=== PATIENT | male | born 1960 | race African-American/Black ===

== ENCOUNTER 2022-02-28 02:33 | Inpatient (IN) | payer MEDICAID ==
[~2022-02-28] VITALS: Ht 152.4 cm; Wt 77.1 kg
[2022-02-28] MEDS ORDERED: ASPIRIN 81MG TABLET PO ONE (02:45)
[2022-02-28 03:30] LABS: BASOPHILS % 0.7 % (0.0-2.0); EOSINOPHILS % 2.7 % (0.0-5.0); HEMATOCRIT. 22.8 % (42.0-52.0); HEMOGLOBIN. 7.3 g/dL (14.0-18.0); LYMPHOCYTES % 14.7 % (20.0-50.0); MEAN CORPUSCULAR HEMOGLOBIN 33.6 pg (28.0-32.0); MEAN CORPUSCULAR VOLUME 104.1 fL (80.0-94.0); MEAN PLATELET VOLUME 6.9 fl (7.4-10.4); MONOCYTES % 8.6 % (2.0-8.0); NEUTROPHILS % 73.3 % (40.0-76.0); PLATELET 142 x1000/uL (130-400); RED BLOOD CELL COUNT 2.19 mill/uL (4.7-6.1)
[2022-02-28 04:36] LABS: CHLORIDE 96 mEq/L (98-107)
[2022-02-28] MEDS ORDERED: CALCIUM CHLORIDE 1GM/10ML SYR IV NR (05:30)
[2022-02-28] MEDS ORDERED: INSULIN REGULAR (HUMULIN R) 300UNITS/3ML VIAL IV NR (05:30)
[2022-02-28] MEDS ORDERED: DEXTROSE 50% WATER 50ML SYRINGE IV NR (05:30)
[2022-02-28] MEDS ORDERED: SODIUM POLYSTYRENE SULFONATE 15 G/60 ML BOT PO NR (05:30)
[2022-02-28] MEDS ORDERED: SODIUM BICARBONATE 8.4% 1 MEQ/ML 50ML SYR IV NR (05:30)
[2022-02-28] MEDS ORDERED: ALBUTEROL (0.083%) 2.5MG/3ML NEB HHN NR (05:30)
[2022-02-28] MEDS ORDERED: SODIUM CHLORIDE 0.9% 500 ML IV NR (16:59)
[2022-02-28] MEDS ORDERED: DEXT 5%/0.9% NACL 1,000 ML IV SCH (18:00)
[2022-03-01 02:30] VITALS: BP 98/70
[2022-03-01] MEDS ORDERED: ATOR40TA70 MT (03:20)
[2022-03-01] MEDS ORDERED: DOCU-150 MT (03:20)
[2022-03-01] MEDS ORDERED: ALLO100T MT (03:20)
[2022-03-01] MEDS ORDERED: FOLI0.8T23 MT (03:20)
[2022-03-01] MEDS ORDERED: GABA100C MT (03:20)
[2022-03-01] MEDS ORDERED: ASPI-1160 PO (03:20)
[2022-03-01] MEDS ORDERED: SEVE800T8 MT (03:20)
[2022-03-01] MEDS ORDERED: PANT40TA51 PO (03:20)
[2022-03-01] MEDS ORDERED: *PATIENT'S OWN MEDICATION STORAGE XX SCH (04:00)
[2022-03-01] MEDS ORDERED: ENOXAPARIN 40MG/0.4ML SYR SUBCUT SCH (07:00)
[2022-03-01] MEDS ORDERED: ZOLPIDEM TARTRATE 5MG TABLET PO PRN (07:00)
[2022-03-01] MEDS ORDERED: MAGNESIUM/ALUMINUM HYDROXIDE/SIMETHICONE 30ML UDC PO PRN (07:00)
[2022-03-01] MEDS ORDERED: GUAIFENESIN 200MG/10ML SUGAR FREE UDC PO PRN (07:00)
[2022-03-01] MEDS ORDERED: IPRATROPIUM/ALBUTEROL 0.5-3(2.5)MG/3ML NEB NEB PRN (07:00)
[2022-03-01] MEDS ORDERED: CLONIDINE 0.1MG TABLET PO PRN (07:00)
[2022-03-01] MEDS ORDERED: NITROGLYCERIN 0.4MG TABLET SL SL PRN (07:00)
[2022-03-01] MEDS ORDERED: ONDANSETRON HCL 4MG/2ML INJ IV PRN (07:00)
[2022-03-01] MEDS ORDERED: ACETAMINOPHEN 325MG TABLET PO PRN ×2 (07:00)
[2022-03-01 07:05] VITALS: BP 98/70
[2022-03-01] MEDS: SEVELAMER CARBONATE 800 MG TABLET PO SCH ×4 (07:40→18:20)
[2022-03-01 08:00] VITALS: BP 137/45
[2022-03-01] MEDS: FAMOTIDINE 20MG TABLET PO SCH ×2 (09:00→09:38)
[2022-03-01] MEDS: ENOXAPARIN 30MG/0.3ML SYR SUBCUT SCH ×2 (09:00→09:39)
[2022-03-01] MEDS ORDERED: FAMOTIDINE 20MG TABLET PO SCH (09:00)
[2022-03-01] MEDS: CLOPIDOGREL 75MG TABLET PO SCH ×2 (09:00→09:41)
[2022-03-01 12:00] VITALS: BP 135/76
[2022-03-01 16:20] VITALS: BP 128/67
[2022-03-01] MEDS: EPOETIN ALFA-EPBX 4,000 UNIT/ML VIAL SUBCUT SCH (21:00)
[2022-03-02] MEDS: SEVELAMER CARBONATE 800 MG TABLET PO SCH ×3 (04:54→17:20)
[2022-03-02] MEDS: FAMOTIDINE 20MG TABLET PO SCH (08:21)
[2022-03-02] MEDS: CLOPIDOGREL 75MG TABLET PO SCH (08:22)
[2022-03-02] MEDS: ENOXAPARIN 30MG/0.3ML SYR SUBCUT SCH ×3 (08:22→09:00)
[2022-03-02 12:01] VITALS: BP 148/68
[2022-03-03] MEDS: SEVELAMER CARBONATE 800 MG TABLET PO SCH ×3 (05:43→17:53)
[2022-03-03] MEDS: ENOXAPARIN 30MG/0.3ML SYR SUBCUT SCH (08:09)
[2022-03-03] MEDS: CLOPIDOGREL 75MG TABLET PO SCH (08:09)
[2022-03-03] MEDS: FAMOTIDINE 20MG TABLET PO SCH (08:09)
[2022-03-03 16:54] LABS: CLARITY URINE CLEAR (CLEAR); COLOR URINE YELLOW (YELLOW); KETONES URINE NEGATIVE (NEGATIVE); LEUKOCYTE ESTERASE URINE NEGATIVE (NEGATIVE); NITRITE URINE NEGATIVE (NEGATIVE); OCCULT BLOOD URINE NEGATIVE (NEGATIVE); PH URINE 8.5 (4.5-8.0); PROTEIN URINE 3+ (NEGATIVE); SPECIFIC GRAVITY URINE 1.011 (1.005-1.030)
[2022-03-03 17:19] LABS: *AMPHETAMINES SCREEN URINE NEGATIVE (NEGATIVE); *BARBITURATES SCREEN URINE NEGATIVE (NEGATIVE); *BENZODIAZEPINES SCREEN URINE NEGATIVE (NEGATIVE); *COCAINE SCREEN URINE NEGATIVE (NEGATIVE); CANNABINOID URINE SCREEN NEGATIVE (NEGATIVE); METHADONE URINE SCREEN NEGATIVE (NEGATIVE); OPIATES URINE SCREEN NEGATIVE (NEGATIVE); PHENCYCLIDINE URINE SCREEN NEGATIVE (NEGATIVE)
[2022-03-03] MEDS: EPOETIN ALFA-EPBX 4,000 UNIT/ML VIAL SUBCUT SCH (21:00)
[2022-03-04] MEDS: SEVELAMER CARBONATE 800 MG TABLET PO SCH ×3 (07:40→17:27)
[2022-03-04] MEDS: FAMOTIDINE 20MG TABLET PO SCH (09:00)
[2022-03-04] MEDS: ENOXAPARIN 30MG/0.3ML SYR SUBCUT SCH (09:00)
[2022-03-04] MEDS: CLOPIDOGREL 75MG TABLET PO SCH (09:00)
[2022-03-04] MEDS: FOLIC ACID/VITAMIN B COMP W-C TABLET PO SCH (11:45)
[2022-03-04] MEDS: ASPIRIN 81MG TABLET PO SCH (11:45)
[2022-03-04] MEDS: GABAPENTIN 100MG CAPSULE PO SCH (17:00)
[2022-03-04] MEDS: ATORVASTATIN CALCIUM 40MG TABLET PO SCH (21:00)
[2022-03-05 00:14] LABS: BASOPHILS % 1.1 % (0.0-2.0); EOSINOPHILS % 4.1 % (0.0-5.0); HEMATOCRIT. 21.3 % (42.0-52.0); HEMOGLOBIN. 7.2 g/dL (14.0-18.0); LYMPHOCYTES % 19.2 % (20.0-50.0); MEAN CORPUSCULAR HEMOGLOBIN 34.3 pg (28.0-32.0); MEAN CORPUSCULAR VOLUME 101.6 fL (80.0-94.0); MEAN PLATELET VOLUME 7.3 fl (7.4-10.4); NEUTROPHILS % 67.6 % (40.0-76.0); PLATELET 139 x1000/uL (130-400); RED CELL DISTRIBUTION WIDTH 14.7 % (11.6-14.6)
[2022-03-05 01:01] LABS: CHLORIDE 99 mEq/L (98-107)
[2022-03-05 01:10] LABS: HDL CHOLESTEROL 23 mg/dL (40-59); LDL CHOLESTEROL 86 mg/dL (5-100)
[2022-03-05] MEDS: SEVELAMER CARBONATE 800 MG TABLET PO SCH ×3 (07:40→17:28)
[2022-03-05] MEDS: CLOPIDOGREL 75MG TABLET PO SCH (09:00)
[2022-03-05] MEDS: ASPIRIN 81MG TABLET PO SCH (09:00)
[2022-03-05] MEDS: GABAPENTIN 100MG CAPSULE PO SCH ×2 (09:00→17:00)
[2022-03-05] MEDS: FAMOTIDINE 20MG TABLET PO SCH (09:00)
[2022-03-05] MEDS: ENOXAPARIN 30MG/0.3ML SYR SUBCUT SCH (09:00)
[2022-03-05] MEDS: FOLIC ACID/VITAMIN B COMP W-C TABLET PO SCH (09:00)
[2022-03-05] MEDS: ATORVASTATIN CALCIUM 40MG TABLET PO SCH (21:00)
[2022-03-06] MEDS: SEVELAMER CARBONATE 800 MG TABLET PO SCH ×3 (07:40→17:17)
[2022-03-06 08:00] VITALS: BP 146/76
[2022-03-06] MEDS: ENOXAPARIN 30MG/0.3ML SYR SUBCUT SCH (09:00)
[2022-03-06] MEDS: CLOPIDOGREL 75MG TABLET PO SCH (09:00)
[2022-03-06] MEDS: ASPIRIN 81MG TABLET PO SCH (09:00)
[2022-03-06] MEDS: FAMOTIDINE 20MG TABLET PO SCH (09:00)
[2022-03-06] MEDS: FOLIC ACID/VITAMIN B COMP W-C TABLET PO SCH (09:00)
[2022-03-06] MEDS: GABAPENTIN 100MG CAPSULE PO SCH ×2 (09:00→16:48)
[2022-03-06] MEDS ORDERED: CEFAZOLIN 1000MG PREMIX 50 ML IV SCH (16:00)
[2022-03-06 20:00] VITALS: BP 118/70
[2022-03-06] MEDS: EPOETIN ALFA-EPBX 4,000 UNIT/ML VIAL SUBCUT SCH (21:00)
[2022-03-06] MEDS: ATORVASTATIN CALCIUM 40MG TABLET PO SCH (21:00)
[2022-03-07 04:00] VITALS: BP 125/76
[2022-03-07] MEDS: ASPIRIN 81MG TABLET PO SCH (08:40)
[2022-03-07] MEDS: CLOPIDOGREL 75MG TABLET PO SCH (08:40)
[2022-03-07] MEDS: GABAPENTIN 100MG CAPSULE PO SCH ×2 (08:40→17:56)
[2022-03-07] MEDS: SEVELAMER CARBONATE 800 MG TABLET PO SCH ×3 (08:40→17:57)
[2022-03-07] MEDS: FOLIC ACID/VITAMIN B COMP W-C TABLET PO SCH (08:40)
[2022-03-07] MEDS: FAMOTIDINE 20MG TABLET PO SCH (09:00)
[2022-03-07] MEDS: ENOXAPARIN 30MG/0.3ML SYR SUBCUT SCH (09:00)
[2022-03-07] MEDS ORDERED: LIDOCAINE HCL/PF 1% 10 MG/ML 5ML VIAL ONE ×2 (11:54→13:11)
[2022-03-07] MEDS: ATORVASTATIN CALCIUM 40MG TABLET PO SCH ×2 (21:00→22:26)
[2022-03-08] MEDS: GABAPENTIN 100MG CAPSULE PO SCH ×2 (08:49→17:54)
[2022-03-08] MEDS: ASPIRIN 81MG TABLET PO SCH (08:49)
[2022-03-08] MEDS: SEVELAMER CARBONATE 800 MG TABLET PO SCH ×3 (08:49→17:54)
[2022-03-08] MEDS: CLOPIDOGREL 75MG TABLET PO SCH (08:50)
[2022-03-08] MEDS: FOLIC ACID/VITAMIN B COMP W-C TABLET PO SCH (08:50)
[2022-03-08] MEDS: FAMOTIDINE 20MG TABLET PO SCH (08:50)
[2022-03-09 08:00] VITALS: BP 147/50
[2022-03-09] MEDS: FOLIC ACID/VITAMIN B COMP W-C TABLET PO SCH (09:00)
[2022-03-09] MEDS: GABAPENTIN 100MG CAPSULE PO SCH ×2 (09:06→18:22)
[2022-03-09] MEDS: SEVELAMER CARBONATE 800 MG TABLET PO SCH ×3 (09:06→18:22)
[2022-03-09] MEDS: CLOPIDOGREL 75MG TABLET PO SCH (09:06)
[2022-03-09] MEDS: FAMOTIDINE 20MG TABLET PO SCH (09:06)
[2022-03-09] MEDS: ASPIRIN 81MG TABLET PO SCH (09:06)
[2022-03-09 20:00] VITALS: BP 126/81
[2022-03-09] MEDS: ATORVASTATIN CALCIUM 40MG TABLET PO SCH (21:57)
[2022-03-10] VITALS: BP 124/83
[2022-03-10 02:50] VITALS: BP 124/83
[2022-03-10] MEDS: GABAPENTIN 100MG CAPSULE PO SCH ×2 (08:05→18:10)
[2022-03-10] MEDS: FAMOTIDINE 20MG TABLET PO SCH (08:05)
[2022-03-10] MEDS: ASPIRIN 81MG TABLET PO SCH (08:05)
[2022-03-10] MEDS: FOLIC ACID/VITAMIN B COMP W-C TABLET PO SCH (08:05)
[2022-03-10] MEDS: SEVELAMER CARBONATE 800 MG TABLET PO SCH ×3 (08:05→18:10)
[2022-03-10] MEDS: CLOPIDOGREL 75MG TABLET PO SCH (08:05)
[2022-03-10 16:00] VITALS: BP 140/62
[2022-03-10 16:01] LABS: HEMATOCRIT 22.4 % (42.0-52.0); HEMOGLOBIN 7.5 g/dL (14.0-18.0); MEAN CORPUSCULAR HEMOGLOBIN 34.5 pg (28.0-32.0); MEAN CORPUSCULAR VOLUME 103.4 fL (80.0-94.0); PLATELET 121 x1000/uL (130-400); RED BLOOD CELL COUNT 2.16 mill/uL (4.7-6.1); RED CELL DISTRIBUTION WIDTH 14.2 % (11.6-14.6)
[2022-03-10 16:19] LABS: PHOSPHORUS 7.4 mg/dL (2.5-4.9)
[2022-03-10] MEDS: ATORVASTATIN CALCIUM 40MG TABLET PO SCH (20:56)
[2022-03-11] VITALS: BP 90/48
[2022-03-11] MEDS: CLOPIDOGREL 75MG TABLET PO SCH (08:07)
[2022-03-11] MEDS: ASPIRIN 81MG TABLET PO SCH (08:07)
[2022-03-11] MEDS: FAMOTIDINE 20MG TABLET PO SCH (08:08)
[2022-03-11] MEDS: SEVELAMER CARBONATE 800 MG TABLET PO SCH ×3 (08:08→18:00)
[2022-03-11] MEDS: FOLIC ACID/VITAMIN B COMP W-C TABLET PO SCH (08:08)
[2022-03-11] MEDS: GABAPENTIN 100MG CAPSULE PO SCH ×2 (08:15→18:00)
[2022-03-11] MEDS ORDERED: GUAIFENESIN 200MG/10ML SUGAR FREE UDC PO PRN (12:15)
[2022-03-11] MEDS: ATORVASTATIN CALCIUM 40MG TABLET PO SCH ×2 (21:00→22:20)
[2022-03-12] MEDS: FOLIC ACID/VITAMIN B COMP W-C TABLET PO SCH (08:51)
[2022-03-12] MEDS: FAMOTIDINE 20MG TABLET PO SCH (08:51)
[2022-03-12] MEDS: SEVELAMER CARBONATE 800 MG TABLET PO SCH ×3 (08:51→17:49)
[2022-03-12] MEDS: CLOPIDOGREL 75MG TABLET PO SCH (08:51)
[2022-03-12] MEDS: ASPIRIN 81MG TABLET PO SCH (08:52)
[2022-03-12] MEDS: GABAPENTIN 100MG CAPSULE PO SCH ×2 (08:59→17:49)
[2022-03-12] MEDS: EPOETIN ALFA-EPBX 4,000 UNIT/ML VIAL SUBCUT SCH (21:00)
[2022-03-13 12:00] VITALS: BP 123/67
[2022-03-13] MEDS: SEVELAMER CARBONATE 800 MG TABLET PO SCH ×2 (13:00→13:43)
[2022-03-13] MEDS: ASPIRIN 81MG TABLET PO SCH (13:41)
[2022-03-13] MEDS: FAMOTIDINE 20MG TABLET PO SCH (13:41)
[2022-03-13] MEDS: GABAPENTIN 100MG CAPSULE PO SCH ×2 (13:41→13:43)
[2022-03-13] MEDS: CLOPIDOGREL 75MG TABLET PO SCH (13:41)
[2022-03-13 16:00] VITALS: BP 138/62
[2022-03-13 17:02] LABS: HEPATITIS B SURFACE ANTIGEN NEGATIVE
[2022-03-13] MEDS: ATORVASTATIN CALCIUM 40MG TABLET PO SCH (22:45)
[2022-03-14] MEDS: ASPIRIN 81MG TABLET PO SCH (09:26)
[2022-03-14] MEDS: GABAPENTIN 100MG CAPSULE PO SCH ×2 (09:27→17:48)
[2022-03-14] MEDS: SEVELAMER CARBONATE 800 MG TABLET PO SCH ×3 (09:27→17:48)
[2022-03-14] MEDS: CLOPIDOGREL 75MG TABLET PO SCH (09:27)
[2022-03-14] MEDS: FOLIC ACID/VITAMIN B COMP W-C TABLET PO SCH (09:28)
[2022-03-14] MEDS: FAMOTIDINE 20MG TABLET PO SCH (09:28)
[2022-03-14 16:00] VITALS: BP 147/44
[2022-03-14] MEDS: ATORVASTATIN CALCIUM 40MG TABLET PO SCH (20:55)
[2022-03-14] MEDS: EPOETIN ALFA-EPBX 4,000 UNIT/ML VIAL SUBCUT SCH (21:00)
[2022-03-15] MEDS: CLOPIDOGREL 75MG TABLET PO SCH (08:57)
[2022-03-15] MEDS: FOLIC ACID/VITAMIN B COMP W-C TABLET PO SCH (08:57)
[2022-03-15] MEDS: ASPIRIN 81MG TABLET PO SCH (08:57)
[2022-03-15] MEDS: SEVELAMER CARBONATE 800 MG TABLET PO SCH ×3 (08:57→18:20)
[2022-03-15] MEDS: FAMOTIDINE 20MG TABLET PO SCH (08:57)
[2022-03-15] MEDS: GABAPENTIN 100MG CAPSULE PO SCH ×2 (08:57→18:20)
[2022-03-15] MEDS: ATORVASTATIN CALCIUM 40MG TABLET PO SCH (20:58)
[2022-03-16] MEDS: CLOPIDOGREL 75MG TABLET PO SCH (08:40)
[2022-03-16] MEDS: GABAPENTIN 100MG CAPSULE PO SCH ×2 (08:40→18:05)
[2022-03-16] MEDS: FAMOTIDINE 20MG TABLET PO SCH (08:40)
[2022-03-16] MEDS: FOLIC ACID/VITAMIN B COMP W-C TABLET PO SCH (08:40)
[2022-03-16] MEDS: SEVELAMER CARBONATE 800 MG TABLET PO SCH ×3 (08:41→18:05)
[2022-03-16] MEDS: ASPIRIN 81MG TABLET PO SCH (08:41)
[2022-03-16] MEDS: EPOETIN ALFA-EPBX 4,000 UNIT/ML VIAL SUBCUT SCH (21:00)
[2022-03-16] MEDS: ATORVASTATIN CALCIUM 40MG TABLET PO SCH (21:00)
[2022-03-17] MEDS: SEVELAMER CARBONATE 800 MG TABLET PO SCH ×3 (06:56→16:55)
[2022-03-17 08:00] VITALS: BP 142/57
[2022-03-17] MEDS: GABAPENTIN 100MG CAPSULE PO SCH ×2 (10:14→16:55)
[2022-03-17] MEDS: FOLIC ACID/VITAMIN B COMP W-C TABLET PO SCH (10:14)
[2022-03-17] MEDS: CLOPIDOGREL 75MG TABLET PO SCH (10:15)
[2022-03-17] MEDS: FAMOTIDINE 20MG TABLET PO SCH (10:15)
[2022-03-17] MEDS: ASPIRIN 81MG TABLET PO SCH (10:15)
[2022-03-17 10:19] VITALS: BP 142/57
[2022-03-17 20:00] VITALS: BP 138/74
[2022-03-17] MEDS: ATORVASTATIN CALCIUM 40MG TABLET PO SCH (20:58)
[2022-03-18] VITALS: BP 132/72
[2022-03-18 08:00] VITALS: BP_SYST 142; BP_SYST 98; BP_DIAS 58; BP_DIAS 66
[2022-03-18] MEDS: FAMOTIDINE 20MG TABLET PO SCH (09:00)
[2022-03-18 12:00] VITALS: BP 98/58
[2022-03-18] MEDS: ASPIRIN 81MG TABLET PO SCH (12:14)
[2022-03-18] MEDS: SEVELAMER CARBONATE 800 MG TABLET PO SCH ×3 (12:14→17:50)
[2022-03-18] MEDS: CLOPIDOGREL 75MG TABLET PO SCH (12:15)
[2022-03-18] MEDS: GABAPENTIN 100MG CAPSULE PO SCH ×2 (12:15→17:00)
[2022-03-18] MEDS: FOLIC ACID/VITAMIN B COMP W-C TABLET PO SCH (12:15)
[2022-03-18] MEDS: ATORVASTATIN CALCIUM 40MG TABLET PO SCH (19:58)
[2022-03-19] MEDS: SEVELAMER CARBONATE 800 MG TABLET PO SCH ×4 (07:50→17:50)
[2022-03-19] MEDS: CLOPIDOGREL 75MG TABLET PO SCH ×2 (08:37→08:43)
[2022-03-19] MEDS: FAMOTIDINE 20MG TABLET PO SCH ×2 (08:37→08:42)
[2022-03-19] MEDS: GABAPENTIN 100MG CAPSULE PO SCH ×3 (08:38→17:00)
[2022-03-19] MEDS: ASPIRIN 81MG TABLET PO SCH ×2 (08:38→08:42)
[2022-03-19] MEDS: FOLIC ACID/VITAMIN B COMP W-C TABLET PO SCH (08:42)
[2022-03-19] MEDS: ATORVASTATIN CALCIUM 40MG TABLET PO SCH (21:00)
[2022-03-20] MEDS: SEVELAMER CARBONATE 800 MG TABLET PO SCH ×3 (07:50→18:37)
[2022-03-20] MEDS: ASPIRIN 81MG TABLET PO SCH (09:53)
[2022-03-20] MEDS: FOLIC ACID/VITAMIN B COMP W-C TABLET PO SCH (09:53)
[2022-03-20] MEDS: FAMOTIDINE 20MG TABLET PO SCH (09:53)
[2022-03-20] MEDS: GABAPENTIN 100MG CAPSULE PO SCH ×2 (09:53→18:38)
[2022-03-20] MEDS: CLOPIDOGREL 75MG TABLET PO SCH (09:53)
[2022-03-20 12:00] VITALS: BP 130/57
[2022-03-20 14:30] VITALS: BP 128/68
[2022-03-20 16:00] VITALS: BP 128/56
[2022-03-20 20:00] VITALS: BP 131/42
[2022-03-20] MEDS: ATORVASTATIN CALCIUM 40MG TABLET PO SCH (21:00)
[2022-03-21] MEDS: SEVELAMER CARBONATE 800 MG TABLET PO SCH ×3 (07:50→18:33)
[2022-03-21] MEDS: ASPIRIN 81MG TABLET PO SCH (08:38)
[2022-03-21] MEDS: FAMOTIDINE 20MG TABLET PO SCH (08:38)
[2022-03-21] MEDS: GABAPENTIN 100MG CAPSULE PO SCH ×2 (08:38→18:31)
[2022-03-21] MEDS: FOLIC ACID/VITAMIN B COMP W-C TABLET PO SCH (08:38)
[2022-03-21] MEDS: CLOPIDOGREL 75MG TABLET PO SCH (08:39)
[2022-03-21] MEDS: ATORVASTATIN CALCIUM 40MG TABLET PO SCH (21:00)
[2022-03-22] VITALS: BP 128/64
[2022-03-22 04:00] VITALS: BP 126/58
[2022-03-22] MEDS: SEVELAMER CARBONATE 800 MG TABLET PO SCH ×3 (07:50→17:50)
[2022-03-22] MEDS: ASPIRIN 81MG TABLET PO SCH (09:00)
[2022-03-22] MEDS: GABAPENTIN 100MG CAPSULE PO SCH ×2 (09:00→17:00)
[2022-03-22] MEDS: FAMOTIDINE 20MG TABLET PO SCH (09:00)
[2022-03-22] MEDS: FOLIC ACID/VITAMIN B COMP W-C TABLET PO SCH (09:00)
[2022-03-22 20:00] VITALS: BP 143/76
[2022-03-22] MEDS: ATORVASTATIN CALCIUM 40MG TABLET PO SCH (21:00)
[2022-03-23] VITALS: BP 140/72
[2022-03-23] MEDS: FOLIC ACID/VITAMIN B COMP W-C TABLET PO SCH (09:07)
[2022-03-23] MEDS: ASPIRIN 81MG TABLET PO SCH (09:07)
[2022-03-23] MEDS: GABAPENTIN 100MG CAPSULE PO SCH ×2 (09:07→18:36)
[2022-03-23] MEDS: FAMOTIDINE 20MG TABLET PO SCH (09:07)
[2022-03-23] MEDS: SEVELAMER CARBONATE 800 MG TABLET PO SCH ×3 (14:20→18:36)
[2022-03-23 20:00] VITALS: BP 146/73
[2022-03-23] MEDS: ATORVASTATIN CALCIUM 40MG TABLET PO SCH (20:26)
[2022-03-24 08:00] VITALS: BP 131/40
[2022-03-24] MEDS: GABAPENTIN 100MG CAPSULE PO SCH ×2 (08:57→17:55)
[2022-03-24] MEDS: FAMOTIDINE 20MG TABLET PO SCH (08:58)
[2022-03-24] MEDS: FOLIC ACID/VITAMIN B COMP W-C TABLET PO SCH (08:58)
[2022-03-24] MEDS: SEVELAMER CARBONATE 800 MG TABLET PO SCH ×3 (08:58→17:55)
[2022-03-24] MEDS: ASPIRIN 81MG TABLET PO SCH (08:58)
[2022-03-24 11:31] VITALS: BP 132/72
[2022-03-24 15:56] VITALS: BP 138/61
[2022-03-24] MEDS: ATORVASTATIN CALCIUM 40MG TABLET PO SCH (21:08)
[2022-03-25] MEDS: DOCUSATE SODIUM 100MG CAPSULE PO PRN ×2 (09:29→09:34)
[2022-03-25] MEDS: FAMOTIDINE 20MG TABLET PO SCH ×2 (09:29→09:33)
[2022-03-25] MEDS: GABAPENTIN 100MG CAPSULE PO SCH (09:29)
[2022-03-25] MEDS: FOLIC ACID/VITAMIN B COMP W-C TABLET PO SCH (09:29)
[2022-03-25] MEDS: ASPIRIN 81MG TABLET PO SCH (09:29)
[2022-03-25] MEDS: SEVELAMER CARBONATE 800 MG TABLET PO SCH ×3 (09:29→18:15)
[2022-03-25] MEDS: ATORVASTATIN CALCIUM 40MG TABLET PO SCH (21:54)
[2022-03-26] MEDS: SEVELAMER CARBONATE 800 MG TABLET PO SCH ×3 (07:50→17:50)
[2022-03-26] MEDS: ASPIRIN 81MG TABLET PO SCH (09:00)
[2022-03-26] MEDS: GABAPENTIN 100MG CAPSULE PO SCH ×2 (09:00→17:00)
[2022-03-26] MEDS: FOLIC ACID/VITAMIN B COMP W-C TABLET PO SCH (09:00)
[2022-03-26] MEDS: ATORVASTATIN CALCIUM 40MG TABLET PO SCH (21:00)
[2022-03-27] MEDS: ASPIRIN 81MG TABLET PO SCH ×2 (09:00→09:53)
[2022-03-27] MEDS: FAMOTIDINE 20MG TABLET PO SCH ×2 (09:00→09:53)
[2022-03-27] MEDS: FOLIC ACID/VITAMIN B COMP W-C TABLET PO SCH (09:00)
[2022-03-27] MEDS: GABAPENTIN 100MG CAPSULE PO SCH ×2 (09:00→09:53)
[2022-03-27] MEDS: SEVELAMER CARBONATE 800 MG TABLET PO SCH ×3 (09:00→17:50)
[2022-03-27 12:00] VITALS: BP 144/41
[2022-03-27 16:00] VITALS: BP 138/87
[2022-03-27] MEDS: ATORVASTATIN CALCIUM 40MG TABLET PO SCH (20:22)
[2022-03-28] MEDS: SEVELAMER CARBONATE 800 MG TABLET PO SCH ×3 (08:45→17:50)
[2022-03-28] MEDS: FOLIC ACID/VITAMIN B COMP W-C TABLET PO SCH (08:45)
[2022-03-28] MEDS: GABAPENTIN 100MG CAPSULE PO SCH ×2 (08:45→17:00)
[2022-03-28 20:00] VITALS: BP 118/76
[2022-03-28] MEDS: ATORVASTATIN CALCIUM 40MG TABLET PO SCH (21:48)
[2022-03-29] VITALS: BP 132/71
[2022-03-29 04:00] VITALS: BP 117/80
[2022-03-29] MEDS: SEVELAMER CARBONATE 800 MG TABLET PO SCH ×3 (07:50→17:50)
[2022-03-29] MEDS: FOLIC ACID/VITAMIN B COMP W-C TABLET PO SCH (09:00)
[2022-03-29] MEDS: ASPIRIN 81MG TABLET PO SCH (09:00)
[2022-03-29] MEDS: FAMOTIDINE 20MG TABLET PO SCH (09:00)
[2022-03-29] MEDS: GABAPENTIN 100MG CAPSULE PO SCH ×2 (09:00→17:00)
[2022-03-29 20:00] VITALS: BP 118/69
[2022-03-29] MEDS: ATORVASTATIN CALCIUM 40MG TABLET PO SCH (20:28)
[2022-03-30] VITALS: BP 124/71
[2022-03-30 04:00] VITALS: BP 129/56
[2022-03-30] MEDS: SEVELAMER CARBONATE 800 MG TABLET PO SCH ×3 (07:50→17:50)
[2022-03-30] MEDS: GABAPENTIN 100MG CAPSULE PO SCH ×2 (09:00→17:00)
[2022-03-30] MEDS: FOLIC ACID/VITAMIN B COMP W-C TABLET PO SCH (09:00)
[2022-03-30] MEDS: ASPIRIN 81MG TABLET PO SCH (09:00)
[2022-03-30] MEDS: ATORVASTATIN CALCIUM 40MG TABLET PO SCH (20:29)
[2022-03-31] MEDS: GABAPENTIN 100MG CAPSULE PO SCH ×2 (09:14→18:00)
[2022-03-31] MEDS: ASPIRIN 81MG TABLET PO SCH (09:15)
[2022-03-31] MEDS: FOLIC ACID/VITAMIN B COMP W-C TABLET PO SCH (09:15)
[2022-03-31] MEDS: SEVELAMER CARBONATE 800 MG TABLET PO SCH ×3 (09:15→18:00)
[2022-03-31] MEDS: ATORVASTATIN CALCIUM 40MG TABLET PO SCH (21:13)
[2022-04-01] VITALS: BP 132/61
[2022-04-01] MEDS: FOLIC ACID/VITAMIN B COMP W-C TABLET PO SCH (08:43)
[2022-04-01] MEDS: ASPIRIN 81MG TABLET PO SCH (08:43)
[2022-04-01] MEDS: GABAPENTIN 100MG CAPSULE PO SCH ×2 (08:43→17:00)
[2022-04-01] MEDS: SEVELAMER CARBONATE 800 MG TABLET PO SCH (08:43)
[2022-04-01 19:58] LABS: HEMATOCRIT. 23.1 % (42.0-52.0); HEMOGLOBIN. 7.8 g/dL (14.0-18.0); MEAN CORPUSCULAR HEMOGLOBIN 33.9 pg (28.0-32.0); MEAN CORPUSCULAR VOLUME 100.2 fL (80.0-94.0); MEAN PLATELET VOLUME 7.1 fl (7.4-10.4); PLATELET 110 x1000/uL (130-400); RED CELL DISTRIBUTION WIDTH 12.4 % (11.6-14.6)
[2022-04-01 20:24] LABS: CHLORIDE 97 mEq/L (98-107)
[2022-04-01] MEDS: ATORVASTATIN CALCIUM 40MG TABLET PO SCH (20:51)
[2022-04-01 21:30] LABS: PLATELET ESTIMATE DECREASED
[2022-04-02] VITALS: BP 129/62
[2022-04-02 04:00] VITALS: BP 134/72
[2022-04-02 20:00] VITALS: BP 102/59
[2022-04-03] VITALS: BP 119/64
[2022-04-03 04:00] VITALS: BP 136/67
[2022-04-04 08:00] VITALS: BP 134/41
[2022-04-04 15:18] LABS: BASOPHILS % 0.7 % (0.0-2.0); EOSINOPHILS % 2.6 % (0.0-5.0); HEMATOCRIT. 22.5 % (42.0-52.0); HEMOGLOBIN. 7.7 g/dL (14.0-18.0); LYMPHOCYTES % 21.4 % (20.0-50.0); MEAN CORPUSCULAR HEMOGLOBIN 33.8 pg (28.0-32.0); MEAN CORPUSCULAR VOLUME 99.1 fL (80.0-94.0); MEAN PLATELET VOLUME 7.8 fl (7.4-10.4); MONOCYTES % 13.9 % (2.0-8.0); NEUTROPHILS % 61.4 % (40.0-76.0); PLATELET 102 x1000/uL (130-400); RED BLOOD CELL COUNT 2.27 mill/uL (4.7-6.1); RED CELL DISTRIBUTION WIDTH 12.6 % (11.6-14.6)
[2022-04-04 16:00] VITALS: BP 144/57
[2022-04-04 16:06] LABS: PHOSPHORUS 8.2 mg/dL (2.5-4.9)
[2022-04-05] MEDS ORDERED: SODIUM POLYSTYRENE SULFONATE 15 G/60 ML BOT PO NR (16:15)
[2022-04-05 20:00] VITALS: BP 144/84
[2022-04-05] MEDS: EPOETIN ALFA-EPBX 4,000 UNIT/ML VIAL SUBCUT SCH ×2 (21:00→22:04)
[2022-04-06] VITALS: BP 142/82
[2022-04-06] MEDS ORDERED: DIPHENHYDRAMINE 25MG CAPSULE PO PRN (03:00)
[2022-04-06 04:00] VITALS: BP 138/78
[2022-04-06 08:00] VITALS: BP 144/45
[2022-04-06 12:00] VITALS: BP 141/37
[2022-04-06 16:00] VITALS: BP 129/59
[2022-04-06 20:00] VITALS: BP 132/40
[2022-04-07] VITALS: BP 130/44
[2022-04-07 12:00] VITALS: BP 133/38
[2022-04-07 20:00] VITALS: BP 146/47
[2022-04-07] MEDS: EPOETIN ALFA-EPBX 4,000 UNIT/ML VIAL SUBCUT SCH (21:00)
[2022-04-08 04:00] VITALS: BP 139/44
[2022-04-09 16:00] VITALS: BP 124/88
[2022-04-09 20:00] VITALS: BP 129/40
[2022-04-10 08:00] VITALS: BP 126/41
[2022-04-10 12:00] VITALS: BP 141/58
[2022-04-10 16:00] VITALS: BP 127/37
[2022-04-10] MEDS: EPOETIN ALFA-EPBX 4,000 UNIT/ML VIAL SUBCUT SCH (20:54)
[2022-04-11 08:00] VITALS: BP 142/66
[2022-04-11 16:00] VITALS: BP 135/53
[2022-04-11 16:43] LABS: EOSINOPHILS % 2.5 % (0.0-5.0); HEMATOCRIT. 22.7 % (42.0-52.0); HEMOGLOBIN. 7.6 g/dL (14.0-18.0); MEAN CORPUSCULAR HEMOGLOBIN 33.1 pg (28.0-32.0); MEAN CORPUSCULAR VOLUME 98.9 fL (80.0-94.0); MEAN PLATELET VOLUME 7.3 fl (7.4-10.4); NEUTROPHILS % 61.5 % (40.0-76.0); PLATELET 116 x1000/uL (130-400); RED BLOOD CELL COUNT 2.29 mill/uL (4.7-6.1); RED CELL DISTRIBUTION WIDTH 12.8 % (11.6-14.6)
[2022-04-11 16:57] LABS: PHOSPHORUS 6.9 mg/dL (2.5-4.9)
[2022-04-12 12:00] VITALS: BP 140/48
[2022-04-13 16:00] VITALS: BP 126/54
[2022-04-13 17:05] LABS: HEMATOCRIT. 22.1 % (42.0-52.0); HEMOGLOBIN. 7.5 g/dL (14.0-18.0); MEAN CORPUSCULAR HEMOGLOBIN 33.5 pg (28.0-32.0); MEAN CORPUSCULAR VOLUME 98.4 fL (80.0-94.0); MEAN PLATELET VOLUME 7.8 fl (7.4-10.4); PLATELET 117 x1000/uL (130-400); RED BLOOD CELL COUNT 2.25 mill/uL (4.7-6.1); RED CELL DISTRIBUTION WIDTH 13.2 % (11.6-14.6)
[2022-04-13 23:11] LABS: PLATELET ESTIMATE DECREASED
[2022-04-14 08:00] VITALS: BP 128/41
[2022-04-14 12:00] VITALS: BP 93/38
[2022-04-14 16:00] VITALS: BP 59/28
[2022-04-14 20:00] VITALS: BP 142/84
[2022-04-14] MEDS: EPOETIN ALFA-EPBX 4,000 UNIT/ML VIAL SUBCUT SCH (21:23)
[2022-04-15] VITALS: BP 138/89
[2022-04-15 08:00] VITALS: BP 133/32
[2022-04-15 12:00] VITALS: BP 131/51
[2022-04-15 16:00] VITALS: BP 136/48
[2022-04-15 20:00] VITALS: BP 143/55
[2022-04-16 08:00] VITALS: BP 148/72
[2022-04-16 12:00] VITALS: BP 162/47
[2022-04-16 16:00] VITALS: BP 137/64
[2022-04-16 18:23] LABS: EOSINOPHILS % 2.5 % (0.0-5.0); HEMATOCRIT. 23.1 % (42.0-52.0); HEMOGLOBIN. 7.7 g/dL (14.0-18.0); LYMPHOCYTES % 25.8 % (20.0-50.0); MEAN CORPUSCULAR VOLUME 99.8 fL (80.0-94.0); MONOCYTES % 8.4 % (2.0-8.0); NEUTROPHILS % 62.3 % (40.0-76.0); PLATELET 120 x1000/uL (130-400); RED BLOOD CELL COUNT 2.32 mill/uL (4.7-6.1); RED CELL DISTRIBUTION WIDTH 13.7 % (11.6-14.6)
[2022-04-16 18:48] LABS: PHOSPHORUS 7.3 mg/dL (2.5-4.9)
[2022-04-17 16:00] VITALS: BP 131/63
[2022-04-17 20:00] VITALS: BP 134/69
[2022-04-17] MEDS: EPOETIN ALFA-EPBX 4,000 UNIT/ML VIAL SUBCUT SCH (21:16)
[2022-04-18] VITALS (9 sets, daily range): BP systolic 103–159; BP diastolic 37–80
[2022-04-19 05:19] VITALS: BP 129/71
== END 2022-04-19 06:30 | disposition home or self-care (01) | DRG 52 ==
LOC: ER 02:49 → MICUSO 05:29 → ENRESERV 20:16 → 8WST 03-01 03:04 → 6EST 03-06 11:50
PROVIDERS: ADMIT Hospitalist; ATTEND Hospitalist
PROC: 5A1D70Z Performance of Urinary Filtration, Intermittent, Less than 6 Hours Per Day (ICD-10-PCS; 2022-03-01)
PROC: 5A1D70Z Performance of Urinary Filtration, Intermittent, Less than 6 Hours Per Day (ICD-10-PCS; 2022-03-04)
PROC: 5A1D70Z Performance of Urinary Filtration, Intermittent, Less than 6 Hours Per Day (ICD-10-PCS; 2022-03-06)
PROC: 5A1D70Z Performance of Urinary Filtration, Intermittent, Less than 6 Hours Per Day (ICD-10-PCS; 2022-03-09)
PROC: 5A1D70Z Performance of Urinary Filtration, Intermittent, Less than 6 Hours Per Day (ICD-10-PCS; 2022-03-10)
PROC: 5A1D70Z Performance of Urinary Filtration, Intermittent, Less than 6 Hours Per Day (ICD-10-PCS; 2022-03-12)
PROC: 5A1D70Z Performance of Urinary Filtration, Intermittent, Less than 6 Hours Per Day (ICD-10-PCS; 2022-03-15)
PROC: 5A1D70Z Performance of Urinary Filtration, Intermittent, Less than 6 Hours Per Day (ICD-10-PCS; 2022-03-18)
PROC: 5A1D70Z Performance of Urinary Filtration, Intermittent, Less than 6 Hours Per Day (ICD-10-PCS; 2022-03-21)
PROC: 5A1D70Z Performance of Urinary Filtration, Intermittent, Less than 6 Hours Per Day (ICD-10-PCS; 2022-03-23)
PROC: 5A1D70Z Performance of Urinary Filtration, Intermittent, Less than 6 Hours Per Day (ICD-10-PCS; 2022-03-26)
PROC: 5A1D70Z Performance of Urinary Filtration, Intermittent, Less than 6 Hours Per Day (ICD-10-PCS; 2022-03-27)
PROC: 5A1D70Z Performance of Urinary Filtration, Intermittent, Less than 6 Hours Per Day (ICD-10-PCS; 2022-03-29)
PROC: 5A1D70Z Performance of Urinary Filtration, Intermittent, Less than 6 Hours Per Day (ICD-10-PCS; 2022-03-31)
PROC: 5A1D70Z Performance of Urinary Filtration, Intermittent, Less than 6 Hours Per Day (ICD-10-PCS; 2022-04-03)
PROC: 5A1D70Z Performance of Urinary Filtration, Intermittent, Less than 6 Hours Per Day (ICD-10-PCS; 2022-04-04)
PROC: 5A1D70Z Performance of Urinary Filtration, Intermittent, Less than 6 Hours Per Day (ICD-10-PCS; 2022-04-06)
PROC: 5A1D70Z Performance of Urinary Filtration, Intermittent, Less than 6 Hours Per Day (ICD-10-PCS; 2022-04-09)
PROC: 5A1D70Z Performance of Urinary Filtration, Intermittent, Less than 6 Hours Per Day (ICD-10-PCS; 2022-04-11)
PROC: 5A1D70Z Performance of Urinary Filtration, Intermittent, Less than 6 Hours Per Day (ICD-10-PCS; 2022-04-13)
PROC: 5A1D70Z Performance of Urinary Filtration, Intermittent, Less than 6 Hours Per Day (ICD-10-PCS; 2022-04-16)
PROC: 5A1D70Z Performance of Urinary Filtration, Intermittent, Less than 6 Hours Per Day (ICD-10-PCS; principal; 2022-04-18)
DX: G93.41 Metabolic encephalopathy (principal); E43 Unspecified severe protein-calorie malnutrition; D61.818 Other pancytopenia; I12.0 Hypertensive chronic kidney disease with stage 5 chronic kidney disease or end stage renal disease; N39.0 Urinary tract infection, site not specified; N18.6 End stage renal disease; E83.39 Other disorders of phosphorus metabolism; E87.1 Hypo-osmolality and hyponatremia; E11.22 Type 2 diabetes mellitus with diabetic chronic kidney disease; B96.4 Proteus (mirabilis) (morganii) as the cause of diseases classified elsewhere; E87.5 Hyperkalemia; Z20.822 Contact with and (suspected) exposure to COVID-19; E78.5 Hyperlipidemia, unspecified; E11.51 Type 2 diabetes mellitus with diabetic peripheral angiopathy without gangrene; I45.10 Unspecified right bundle-branch block; F17.200 Nicotine dependence, unspecified, uncomplicated; S81.812A Laceration without foreign body, left lower leg, initial encounter; S81.811A Laceration without foreign body, right lower leg, initial encounter; X58.XXXA Exposure to other specified factors, initial encounter; I69.351 Hemiplegia and hemiparesis following cerebral infarction affecting right dominant side; Z91.15 Patient's noncompliance with renal dialysis; Z99.2 Dependence on renal dialysis; I69.320 Aphasia following cerebral infarction; Z59.01 Sheltered homelessness; Z79.899 Other long term (current) drug therapy; Z82.49 Family history of ischemic heart disease and other diseases of the circulatory system; Z83.3 Family history of diabetes mellitus; Z89.511 Acquired absence of right leg below knee; Z89.512 Acquired absence of left leg below knee; Z68.33 Body mass index [BMI] 33.0-33.9, adult; Y93.89 Activity, other specified; Y92.89 Other specified places as the place of occurrence of the external cause; Y99.8 Other external cause status; Z71.6 Tobacco abuse counseling
CPT/HCPCS: 36415; 71045; 80048; 80053; 80061; 80305; 81003; 82140; 82607; 82962; 83036; 83735; 83880; 84100; 84484; 85025; 85027; 86705; 86709; 86803; 87077; 87186; 87340; 87426; 93005; 97162; 97166; 99291; A6261; J0690; J0885; J1650; J1815; J2405; J3490; Q0163